=== PATIENT | female | born 1935 | race Caucasian/White ===

== ENCOUNTER 2017-11-28 17:31 | Emergency (ER) | payer MEDICARE ==
[2015-03-09 09:01] VITALS: BMI 28.1
[~2017-11-28 17:31] MED LIST: ACETAMINOPHEN500 M1 PO; CARDIZEM CD240 MG PO; COUMADIN3 MG PO; DIOVAN HCT 160/1 TAB PO; LOPRESSOR25 MG PO; PLAVIX75 MG PO; VALIUM5 MG PO
[2017-11-28 18:17] LABS: APPEARANCE CLEAR (CLEAR); BILIRUBIN NEGATIVE (NEGATIVE); COLOR YELLOW (YELLOW); GLUCOSE NEGATIVE (NEGATIVE); KETONE SMALL mg/dL (NEGATIVE); NITRITE NEGATIVE (NEGATIVE); PROTEIN 1+ mg/dL (NEGATIVE); UROBILINOGEN NORMAL (NORMAL)
[2017-11-28 18:19] LABS: BACTERIA MODERATE /hpf (NONE SEEN); GRANULAR CAST OCC /lpf (NONE SEEN); MUCUS <1+ /lpf (NONE SEEN); RED CELLS - URINE 0-5 /hpf (0-5)
[2017-11-28 19:11] LABS: BASOPHILS 0 % (0-2); EOSINOPHILS 0.2 % (0-7); HEMATOCRIT 38.4 % (36.0-48.0); HEMOGLOBIN 12.7 g/dL (12-16); IMMATURE GRANULOCYTES 0.1 % (0-5); LYMPHOCYTES 2.2 % (15-50); MCHC 33.1 g/dL (31.0-37.0); MCV 90.6 fL (80.0-100.0); MEAN PLATELET VOLUME 10.3 fL (7.4-10.4); MONOCYTES 2.7 % (2-11); NEUTROPHILS 94.8 % (40-80); PLATELET COUNT 216 10x3/uL (130-400); RBC 4.24 10x6/uL (4.00-5.40); RDW 13.4 % (11.5-14.5)
[2017-11-28 19:20] LABS: ALBUMIN 3.8 g/dL (3.4-5.0); ALKALINE PHOSPHATASE 87 U/L (46-116); ALT (SGPT) 20 U/L (10-68); BILIRUBIN - TOTAL 0.44 mg/dL (0.2-1.3); CALC OSMOLALITY 288 mosm/kg (275-300); CALCIUM 8.8 mg/dL (8.5-10.1); CARBON DIOXIDE 24.1 mmol/L (21.0-32.0); CHLORIDE - SERUM 106 mmol/L (98-107); CREATININE - SERUM 1.2 mg/dL (0.6-1.3); GLUCOSE 128 mg/dL (74-106); POTASSIUM - SERUM 4.1 mmol/L (3.5-5.1); PROTEIN - SERUM 6.9 g/dL (6.4-8.2); SODIUM 141 mmol/L (136-145); UREA NITROGEN 29 mg/dL (7-18); eGFR NON AFRICAN AMERICAN 45 mL/min (90-120)
[2017-11-28 19:27] LABS: TROPONIN-I < 0.017 ng/mL (0.000-0.060)
== END 2017-11-28 20:18 | disposition home or self-care (01) ==
LOC: D.ER 17:31
PROVIDERS: Emergency Medicine
DX: A08.4 Viral intestinal infection, unspecified (principal); E86.0 Dehydration; N39.0 Urinary tract infection, site not specified; N76.0 Acute vaginitis

== ENCOUNTER 2019-08-05 12:08 | Emergency (ER) | payer MEDICARE ==
[~2019-08-05] VITALS: Ht 165.1 cm; Wt 76.8 kg
[2019-08-05 12:23] VITALS: Ht 165.1 cm; Wt 76.8 kg
[2019-08-05] MEDS ORDERED: TOPROL XL100 MG PO (12:27)
[2019-08-05] MEDS ORDERED: COZAAR100 MG PO (12:27)
[2019-08-05] MEDS ORDERED: BAYER CHEWABLE81 MG PO (12:27)
[2019-08-05] MEDS ORDERED: CLEOCIN HCL300 MG PO (12:28)
[2019-08-05] MEDS ORDERED: CARDIZEM 90 MG90 MG PO (12:28)
[2019-08-05] MEDS ORDERED: LASIX20 MG PO (12:29)
[2019-08-05] MEDS ORDERED: CATAPRES0.1 MG PO (12:31)
[2019-08-05] MEDS ORDERED: REMERON15 MG PO (12:31)
[2019-08-05] MEDS ORDERED: LIPITOR20 MG PO (12:31)
[2019-08-05 13:00] LABS: BASOPHILS 0.6 % (0-2); EOSINOPHILS 8.4 % (0-7); HEMOGLOBIN 11.9 g/dL (12-16); IMMATURE GRANULOCYTES 0.2 % (0-5); LYMPHOCYTES 21.8 % (15-50); MCH 29.9 pg (26.0-34.0); MCHC 33.1 g/dL (31.0-37.0); MCV 90.5 fL (80.0-100.0); MEAN PLATELET VOLUME 9.6 fL (7.4-10.4); MONOCYTES 8.2 % (2-11); NEUTROPHILS 60.8 % (40-80); PLATELET COUNT 242 10x3/uL (130-400); RBC 3.98 10x6/uL (4.00-5.40); RDW 14.2 % (11.5-14.5); WBC 4.8 10x3/uL (4.8-10.8)
[2019-08-05 13:01] LABS: APPEARANCE CLEAR (CLEAR); COLOR STRAW (YELLOW); GLUCOSE NEGATIVE (NEGATIVE); NITRITE NEGATIVE (NEGATIVE); PROTEIN NEGATIVE (NEGATIVE)
[2019-08-05 13:02] LABS: BILIRUBIN NEGATIVE (NEGATIVE); KETONE NEGATIVE (NEGATIVE); UROBILINOGEN NORMAL (NORMAL)
[2019-08-05 13:06] LABS: ANION GAP 11.5 mmol/L (8-16); CALCIUM 8.8 mg/dL (8.5-10.1); CARBON DIOXIDE 27.8 mmol/L (21.0-32.0); CREATININE - SERUM 1.3 mg/dL (0.6-1.3); POTASSIUM - SERUM 4.3 mmol/L (3.5-5.1)
[2019-08-05 13:12] LABS: ALBUMIN 3.7 g/dL (3.4-5.0); BILIRUBIN - TOTAL 0.46 mg/dL (0.2-1.3); PROTEIN - SERUM 6.9 g/dL (6.4-8.2)
[2019-08-05 14:34] LABS: CREATINE KINASE 77 UL (21-215); TROPONIN-I < 0.017 ng/mL (0.000-0.060)
[2019-08-05 17:12] VITALS: BP 178/59
--- NOTE | 2019-08-16 11:40 | CN ---
PATIENT NAME:EMILIA CALDERÓN MEDICAL RECORD: [id number] : 33 LOCATION:.ER ADMIT DATE: ACCOUNT: [id number] CONSULTING PHYSICIAN: VERO CAMPOVERDE MD REFERRING PHYSICIAN: ALY ANGLIN MD DATE OF CONSULTATION: 08/05/2019 CARDIOLOGY CONSULTATION DIAGNOSES: 1. Uncontrolled hypertension. 2. Angina. 3. Coronary artery disease. 4. Previous percutaneous transluminal coronary angioplasty stent. 5. Essential hypertension. 6. Hyperlipidemia. HISTORY OF PRESENT ILLNESS: Mrs. Calderón was previously a patient here. She relocated to the [facility]. She is now relocating back. Since she has been in [place], she underwent PTCA stent of her left circumflex and RCA in September with VersionOne drug-eluting stents. She had done well until recently. Her blood pressure has not gone under 200 in weeks. She is on Cardizem, Cozaar, Toprol, Catapres, Lasix. She continues to have hypertensive episodes on a daily basis with systolic blood pressures over 200. She as well now has developed some chest pain. Her EKG is with no changes. Troponin is normal. FAMILY HISTORY: Positive for premature coronary artery disease as well as hypertension. SOCIAL HISTORY: As above. She is relocating to the [facility]. She denies smoking or ETOH. PHYSICAL EXAMINATION: CONSTITUTIONAL/GENERAL APPEARANCE: Well nourished, well developed, appears stated age. EYES: Lids and conjunctivae noninjected. No discharge. No pallor. ENT: Lips within normal limit. No cyanosis. No pallor. NECK: Carotid arteries, bilateral normal upstroke. No bruits. No thrills. No jugular venous pressure or distention. CERVICAL LYMPH NODES: Nontender. Nonenlarged. THYROID: Not enlarged. No nodules. CARDIOVASCULAR: Precordial exam, nondisplaced. No heaves or pericardial thrills. Rate and rhythm, regular. Heart sounds, normal S1, normal S2. No S3, no gallop, no rub. Systolic murmur, not heard. Diastolic murmur, not heard. RESPIRATORY: Respiratory effort, unlabored. Normal curvature. No thoracic deformity. No chest wall tenderness. Percussion, resonant. Auscultation, clear. No wheezes, no rales, no rhonchi. ABDOMEN: Soft, nondistended, nontender. No abdominal pain, no vomiting and normal appetite. MUSCULOSKELETAL: No joint tenderness, normal gait, normal tone. SKIN: Warm and dry. REVIEW OF SYSTEMS: The patient reports easy bruising but reports no swollen glands. The patient reports no fever, no night sweats, no significant weight CONSULT REPORT [id number] EMILIA CALDERÓN N gain, no significant weight loss. No significant exercise tolerance. The patient reports no dry eyes, no irritation, no vision change. Patient reports no difficulty hearing and no ear pain. Patient reports no frequent nose bleeds or nose and sinus problems. Patient reports on arm pain on exertion. No shortness of breath while lying down. No history of heart murmur. Patient reports no cough, no wheezing or coughing up blood. Patient reports no abdominal pain, no vomiting. Normal appetite. No diarrhea and not vomiting blood. No nausea and no constipation. Patient reports no incontinence. No difficulty urinating. No hematuria. No increased frequency. Patient reports no muscle aches. No weakness, no arthralgias, no back pain. No swelling of the extremities. Patient reports no abnormal mole, no jaundice, no rashes. Reports no loss of consciousness. No weakness and no numbness. No seizures, dizziness, or headaches. The patient reports no depression, no sleep disturbance, feeling safe in a relationship and no alcohol abuse. Patient reports on fatigue. Reports no runny nose or sinus pressure. No itching, no hives, and no frequent sneezing. OVERALL IMPRESSION: Out of control hypertension. At this time, we will discontinue the Cardizem, place her on Procardia-XL [address]. We will also add Cardura 8 mg b.i.d. Continuing the Cozaar, continuing the Toprol, continue the Catapres. We will see her in the office. She will bring in blood pressure readings. We will see if this makes a difference. TRANSINT:[id number] Voice Confirmation ID: [id number] DOCUMENT ID: [id number] VERO CAMPOVERDE MD at 1140 CC: [id number] DICTATION DATE: 08/05/19 1453 SVP DIGITAL SALES: 08/05/19 0408 DEP ER 08/05/19 [facility] [address] [place] [address]
== END 2019-08-05 17:12 | disposition home or self-care (01) ==
LOC: D.ER 12:08
PROVIDERS: Family Medicine
DX: I10 Essential (primary) hypertension (principal); I25.10 Atherosclerotic heart disease of native coronary artery without angina pectoris

== ENCOUNTER 2019-10-14 13:42 | Inpatient (IN) | payer MEDICARE ==
[~2019-10-14] VITALS: Ht 165.1 cm; Wt 74.8 kg
[~2019-10-14 13:42] MED LIST changes: +BAYER CHEWABLE81 MG PO; +CARDIZEM 90 MG90 MG PO; +CATAPRES0.1 MG PO; +CLEOCIN HCL300 MG PO; +COZAAR100 MG PO; +LASIX20 MG PO; +LIPITOR20 MG PO; +REMERON15 MG PO; +TOPROL XL100 MG PO
[2019-10-14 14:38] LABS: BASOPHILS 0.1 % (0-2); EOSINOPHILS 0.1 % (0-7); HEMATOCRIT 32.1 % (36.0-48.0); HEMOGLOBIN 10.6 g/dL (12-16); IMMATURE GRANULOCYTES 0.4 % (0-5); LYMPHOCYTES 5.4 % (15-50); MCV 90.9 fL (80.0-100.0); MEAN PLATELET VOLUME 10.5 fL (7.4-10.4); MONOCYTES 9.2 % (2-11); NEUTROPHILS 84.8 % (40-80); RBC 3.53 10x6/uL (4.00-5.40); RDW 12.3 % (11.5-14.5); WBC 7.1 10x3/uL (4.8-10.8)
[2019-10-14 14:50] LABS: PLATELET COUNT 162 10x3/uL (130-400)
[2019-10-14 14:59] LABS: CALC OSMOLALITY 275 mosm/kg (275-300); CALCIUM 8.2 mg/dL (8.5-10.1); CARBON DIOXIDE 25.3 mmol/L (21.0-32.0); CHLORIDE - SERUM 102 mmol/L (98-107); CREATININE - SERUM 1.8 mg/dL (0.6-1.3); GLUCOSE 103 mg/dL (74-106); POTASSIUM - SERUM 3.5 mmol/L (3.5-5.1); SODIUM 136 mmol/L (136-145); UREA NITROGEN 25 mg/dL (7-18); eGFR NON AFRICAN AMERICAN 28 mL/min (90-120)
[2019-10-14 15:10] LABS: ALBUMIN 2.7 g/dL (3.4-5.0); ALKALINE PHOSPHATASE 75 U/L (46-116); ALT (SGPT) 39 U/L (10-68); AMYLASE - SERUM 39 U/L (25-115); BILIRUBIN - TOTAL 0.41 mg/dL (0.2-1.3); LIPASE 59 U/L (73-393); PROTEIN - SERUM 5.9 g/dL (6.4-8.2)
[2019-10-14 15:19] LABS: TROPONIN-I < 0.017 ng/mL (0.000-0.060)
[2019-10-14 15:32] LABS: APPEARANCE HAZY (CLEAR); BILIRUBIN NEGATIVE (NEGATIVE); COLOR YELLOW (YELLOW); GLUCOSE NEGATIVE (NEGATIVE); KETONE NEGATIVE (NEGATIVE); NITRITE NEGATIVE (NEGATIVE); PROTEIN 1+ mg/dL (NEGATIVE); SPECIFIC GRAVITY 1.025 (1.005-1.020); UROBILINOGEN NORMAL (NORMAL)
[2019-10-14 15:33] LABS: BACTERIA MANY /hpf (NEGATIVE); EPITHELIAL CELLS 0-5 /hpf (0-5); RED CELLS - URINE 0-5 /hpf (0-5); WHITE CELLS - URINE 25-50 /hpf (NEGATIVE)
--- NOTE | 2019-10-14 17:18 | NUR ---
AFTER MEDS SCANNED, UNABLE TO FLUSH IV IN THE RIGHT WRIST, RESITED TO RIGHT FOREARM, AND MEDICATIONS ARE INFUSING AT THIS NEW IV SITE.
--- NOTE | 2019-10-14 17:45 | MORECARE ---
CASE MANAGEMENT DISCHARGE SUMMARY PATIENT: EMILIA CALDERÓN UNIT: [id number] ADM DATE: 10/14/19 AGE: 84 : 34 SEX: F ROOM/BED: D.2239 AUTHOR: GER HUIZAR PHYSICIAN: REFERRING PHYSICIAN: IMELDA ROMANO MD DATE OF SERVICE: 10/14/19 Discharge Plan Patient Name: EMILIA CALDERÓN Facility: [facility]:[place] : 1935 Planned Disposition: Anticipated Discharge Date: Discharge Date: Expected LOS: Initial Reviewer: [email or web address] Initial Review Date: 10/14/2019 Generated: 10/14/19 6:44 pm DCP- Discharge Planning Updated by [email or web address]: Candace Montero on 10/14/19 4:[address] CM met with patient to discuss initial discharge planning. Patient is in agreement to proceed with assessment. Patient is alert/oriented. Stairs/steps: 0. PCP: Patient does not have a PCP. Dr. Bhatia is her sports medicine trainer. Pharmacy: [facility]. Patient states they have been able to obtain all of their prescribed medications. Patient lives alone. HHS: No. DME: None. Patient gives permission to speak with family members. Emergency contact: Mena or RACHELLE Sky (Twin sister) [phone]. Patient is Independent with ADL's, medication management. CM discussed the availability of HH, Rehab, DME services. Patient denies the need for additional services at this time and feels safe returning to previous environment. Patient denies being hospitalized within the past 30 days. 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 Transportation at time of discharge: Mena or RACHELLE Sky. CM will follow and assist with DC needs/plans PRN. Patient Name: EMILIA CALDERÓN Page [id number] at 0252 All edits/amendments must be made on the electronic document DICTATION DATE: 10/14/191743 TRAFFIC OFFICER: NA 10/14/191743 RPT#: [id number] DC DATE: STATUS: ADM IN [facility] [address] [place] [address] END OF REPORT
--- NOTE | 2019-10-14 17:54 | MORECARE ---
CASE MANAGEMENT DISCHARGE SUMMARY PATIENT: EMILIA CALDERÓN UNIT: [id number] ADM DATE: 10/14/19 AGE: 84 : 34 SEX: F ROOM/BED: D.2239 AUTHOR: BHUPENDRADOC PHYSICIAN: REFERRING PHYSICIAN: IMELDA ROMANO MD DATE OF SERVICE: 10/14/19 Discharge Plan Patient Name: EMILIA CALDERÓN Facility: [facility]:[place] : 1935 Planned Disposition: Anticipated Discharge Date: Discharge Date: Expected LOS: Initial Reviewer: [email or web address] Initial Review Date: 10/14/2019 Generated: 10/14/19 6:53 pm DCP- Discharge Planning Updated by [email or web address]: Candace Montero on 10/14/19 4:[address] CM met with patient to discuss initial discharge planning. Patient is in agreement to proceed with assessment. Patient is alert/oriented. Stairs/steps: 0. PCP: Patient does not have a PCP. Dr. Bhatia is her flap lining binder. [facility] Patient states they have been able to obtain all of their prescribed medications. Patient lives alone. HHS: No. DME: None. Patient gives permission to speak with family members. Emergency contact: Mena dominguez RACHELLE Asya (Twin sister) [phone]. Patient is Independent with ADL's, medication management. CM discussed the availability of HH, Rehab, DME services. Patient denies the need for additional services at this time and feels safe returning to previous environment. Patient denies being hospitalized within the past 30 days. Patient denies the use of community resources FLIGHT STEWARD. Transportation at time of discharge: Mena Sky. CM will follow and assist with DC needs/plans PRN. DCPIA - Discharge Planning Initial Assessment Updated by [email or web address]: Candace Montero on 10/14/19 5:45 pm * Is the patient Alert and Oriented? Yes * How many steps to enter\exit or inside your home? * PCP No PCP currently. Dr. Bhatia Cardiology * Pharmacy [facility] 7 * Preadmission Environment Home Alone * ADLs Independent * Other Equipment * List name and contact numbers for known caregivers / representatives who currently or will assist patient after discharge: Perla Sky (twin sister) [phone] * Verbal permission to speak to the caregivers and representatives has been obtained from the patient. Yes * Community resources currently utilized None * Additional services required to return to the preadmission environment? No * Can the patient safely return to the preadmission environment? Yes * Has this patient been hospitalized within the prior 30 days at any hospital? No Last DP export: 10/14/19 4:45 Patient Name: EMILIA CALDERÓN Page [phone] at 1754 All edits/amendments must be made on the electronic document DICTATION DATE: 10/14/191752 WOOD LATHER: NA 10/14/191752 RPT#: [id number] CA DATE: STATUS: ADM IN [facility] [address] [place] [address] END OF REPORT
--- NOTE | 2019-10-14 17:57 | NUR ---
PT TO ROOM FROM ER VIA WHEELCHAIR. IV NORMAL SALINE INFUSING ON ARRIVAL. SOME NAUSEA COMPLAINT BUT LITTLE BETTER THAN PRIOR TO ARRIVAL. NO FAMILY PRESENT.
[2019-10-14] MEDS ORDERED: CARDURA8 MG PO (18:04)
--- NOTE | 2019-10-14 20:00 | NUR ---
PT RESTING QUIETLY, EYES CLOSED. NO NAUSEA/DIARRHEA AT THIS TIME. TELEMETRY SINUS RHYTHM. ASSESSMENT COMPLETE PER FLOW-SHEET. HISTORY REVIEWED. WILL CONTINUE TO MONITOR.
[2019-10-14 21:00] VITALS: BP 133/48
[2019-10-14 23:28] LABS: CKMB 0.6 U/L (0.0-3.6); CREATINE KINASE 45 UL (21-215); TROPONIN-I < 0.017 ng/mL (0.000-0.060)
[2019-10-15 01:17] VITALS: BP 154/48
[2019-10-15 01:24] VITALS: BP 133/48; BMI 27.5
[2019-10-15 04:50] VITALS: BP 146/49
[2019-10-15 06:32] LABS: % SATURATION 7 % (15-55); IRON 12 ug/dl (35-150); TOTAL IRON BIND CAPACITY 164 ug/dl (260-445); UNSAT IRON BIND CAPACITY 152 ug/dl (150-375)
[2019-10-15 07:05] LABS: INR 1.15 (0.85-1.17); PROTIME 14.2 SECONDS (11.6-15.0)
[2019-10-15 07:06] LABS: APTT 34.9 SECONDS (22.8-39.4); CKMB 0.4 U/L (0.0-3.6); CREATINE KINASE 41 UL (21-215)
[2019-10-15 07:07] LABS: TROPONIN-I < 0.017 ng/mL (0.000-0.060)
--- NOTE | 2019-10-15 08:35 | NUR ---
RESTING IN BED, NO DISTRESS NOTED, SL IN PLACE, TELE WITH SR AT 70
[2019-10-15 09:01] VITALS: BP 152/51
[2019-10-15 10:52] LABS: BASOPHILS 0.1 % (0-2); EOSINOPHILS 0.4 % (0-7); HEMATOCRIT 28.3 % (36.0-48.0); HEMOGLOBIN 9.4 g/dL (12-16); IMMATURE GRANULOCYTES 0.4 % (0-5); LYMPHOCYTES 10.5 % (15-50); MCH 30.4 pg (26.0-34.0); MCHC 33.2 g/dL (31.0-37.0); MCV 91.6 fL (80.0-100.0); NEUTROPHILS 78.6 % (40-80); PLATELET COUNT 160 10x3/uL (130-400); RBC 3.09 10x6/uL (4.00-5.40); RDW 12.5 % (11.5-14.5); WBC 6.8 10x3/uL (4.8-10.8)
[2019-10-15 11:14] LABS: ALBUMIN 2.1 g/dL (3.4-5.0); ALKALINE PHOSPHATASE 70 U/L (46-116); ALT (SGPT) 45 U/L (10-68); BILIRUBIN - TOTAL 0.27 mg/dL (0.2-1.3); CARBON DIOXIDE 21.5 mmol/L (21.0-32.0); CHLORIDE - SERUM 103 mmol/L (98-107); CKMB 0.3 U/L (0.0-3.6); CREATINE KINASE 31 UL (21-215); GLUCOSE 103 mg/dL (74-106); POTASSIUM - SERUM 3.3 mmol/L (3.5-5.1); PROTEIN - SERUM 5.4 g/dL (6.4-8.2); SODIUM 135 mmol/L (136-145)
[2019-10-15 11:15] LABS: CALC OSMOLALITY 277 mosm/kg (275-300); CREATININE - SERUM 3.6 mg/dL (0.6-1.3); UREA NITROGEN 35 mg/dL (7-18)
[2019-10-15 11:16] LABS: TROPONIN-I < 0.017 ng/mL (0.000-0.060); eGFR NON AFRICAN AMERICAN 13 mL/min (90-120)
[2019-10-15 12:51] VITALS: BP 125/49
[2019-10-15 17:01] VITALS: BP 122/54
[2019-10-16 00:29] VITALS: BP 173/54
[2019-10-16 05:30] VITALS: BP 180/62
[2019-10-16 06:27] LABS: BASOPHILS 0.2 % (0-2); EOSINOPHILS 2.1 % (0-7); HEMOGLOBIN 9.5 g/dL (12-16); IMMATURE GRANULOCYTES 0.7 % (0-5); LYMPHOCYTES 11.1 % (15-50); MCH 29.8 pg (26.0-34.0); MCHC 32.8 g/dL (31.0-37.0); MCV 90.9 fL (80.0-100.0); MEAN PLATELET VOLUME 10.2 fL (7.4-10.4); MONOCYTES 11.7 % (2-11); NEUTROPHILS 74.2 % (40-80); RBC 3.19 10x6/uL (4.00-5.40); RDW 12.5 % (11.5-14.5); WBC 5.8 10x3/uL (4.8-10.8)
[2019-10-16 06:37] LABS: ANION GAP 16.6 mmol/L (8-16); CALCIUM 7.9 mg/dL (8.5-10.1); CARBON DIOXIDE 19.6 mmol/L (21.0-32.0); CREATININE - SERUM 4.8 mg/dL (0.6-1.3); MAGNESIUM - SERUM 2.2 mg/dL (1.8-2.4); PHOSPHOROUS 3.3 mg/dL (2.5-4.9); POTASSIUM - SERUM 4.2 mmol/L (3.5-5.1)
[2019-10-16 06:38] LABS: PLATELET COUNT 204 10x3/uL (130-400)
--- NOTE | 2019-10-16 10:17 | NUR ---
PT LYING IN BED NO S/SX OF DISTRESS, NO NEEDS VOICED, BED IN LOWEST POSITION, CL IN REACH CONTINUE WITH PLANOF CARE
[2019-10-16 12:20] VITALS: BP 112/58
--- NOTE | 2019-10-16 13:18 | NUR ---
I have reviewed this patient and I concur with the Shift Assessment completed by the Licensed Practical Nurse today this shift.
--- NOTE | 2019-10-16 13:34 | NUR ---
SPOKE TO NURSE YESTERDAY IN REGARDS TO PT BLADDER SCAN THAT WAS ORDERED, STATED PT IS VOIDING AND NO NEEDS FOR BLADDER SCAN SPOKE TO PT AND SHE STATED SHE IS VOIDING AND FEELS LIKE SHE IS EMPTYING COMPLETELY WILL SPEAK TO NICKEL OPERATOR IN REGARDS TO ORDER. PLACED HAT IN TOILET FOR STOOL SAMPLE. CONTINUE WITH PLAN OF CARE
[2019-10-16 13:35] LABS: % SATURATION 13 % (15-55); IRON 17 ug/dl (35-150); TOTAL IRON BIND CAPACITY 130 ug/dl (260-445); UNSAT IRON BIND CAPACITY 113 ug/dl (150-375)
[2019-10-16 16:12] VITALS: BP 117/59
--- NOTE | 2019-10-16 17:43 | NUR ---
PT C/O SWELLING AND NUMBNESS IN FEET THAT SHE STATES STARTED LAST NIGHT. SAYS IT IS MORE IN HER RIGHT LEG THAN HER LEFT AND WORSE WHEN SHE SITS UP. ENCOURAGED PT TO LAY BACK AND ELEVATE FEET. PT AGREEABLE. CONTINUE WITH PLAN OF CARE AND MONITOR SWELLING
[2019-10-16 19:30] VITALS: BP 179/64
[2019-10-17 00:30] VITALS: BP 174/54
[2019-10-17 05:31] VITALS: BP 172/63
[2019-10-17 06:53] LABS: BASOPHILS 0.2 % (0-2); EOSINOPHILS 2.9 % (0-7); HEMATOCRIT 28.4 % (36.0-48.0); HEMOGLOBIN 9.4 g/dL (12-16); IMMATURE GRANULOCYTES 0.6 % (0-5); MCH 29.8 pg (26.0-34.0); MCHC 33.1 g/dL (31.0-37.0); MCV 90.2 fL (80.0-100.0); MEAN PLATELET VOLUME 9.9 fL (7.4-10.4); MONOCYTES 12.8 % (2-11); NEUTROPHILS 73.5 % (40-80); PLATELET COUNT 241 10x3/uL (130-400); RBC 3.15 10x6/uL (4.00-5.40); RDW 12.5 % (11.5-14.5); WBC 5.1 10x3/uL (4.8-10.8)
[2019-10-17 07:14] LABS: ANION GAP 17.2 mmol/L (8-16); CALCIUM 8.1 mg/dL (8.5-10.1); CARBON DIOXIDE 19.9 mmol/L (21.0-32.0); CREATININE - SERUM 4.5 mg/dL (0.6-1.3); MAGNESIUM - SERUM 1.9 mg/dL (1.8-2.4); PHOSPHOROUS 3.6 mg/dL (2.5-4.9); POTASSIUM - SERUM 4.1 mmol/L (3.5-5.1)
[2019-10-17 08:14] VITALS: BP 163/53
[2019-10-17 12:51] VITALS: BP 175/64
[2019-10-17 14:40] VITALS: BMI 27.4
[2019-10-17 16:35] VITALS: BP 167/67
[2019-10-17 19:30] VITALS: BP 159/64
[2019-10-17 22:09] VITALS: Ht 165.1 cm; Wt 74.8 kg
[2019-10-18 00:30] VITALS: BP 160/60
--- NOTE | 2019-10-18 01:03 | NUR ---
REC'D IN BED DURING WALKING ROUNDS, CHGE OF SHIFT.LYING ON RIGHT SIDE.ALERT/ORIENTED X3.DENIES PAIN OR ANY OTHER DISCOMFORT AT PRESENT TIME. WILL CONTINUE TO MONITOR FOR ANY CHGES AND FOLLOW CURRENT PLAN OF CARE.
[2019-10-18 05:33] LABS: BASOPHILS 0.4 % (0-2); EOSINOPHILS 2.2 % (0-7); HEMATOCRIT 28.8 % (36.0-48.0); HEMOGLOBIN 9.5 g/dL (12-16); IMMATURE GRANULOCYTES 1.3 % (0-5); LYMPHOCYTES 15.6 % (15-50); MCH 29.7 pg (26.0-34.0); MEAN PLATELET VOLUME 9.6 fL (7.4-10.4); MONOCYTES 11.4 % (2-11); NEUTROPHILS 69.1 % (40-80); PLATELET COUNT 283 10x3/uL (130-400); RDW 12.6 % (11.5-14.5); WBC 5.5 10x3/uL (4.8-10.8)
[2019-10-18 05:35] VITALS: BP 154/67
[2019-10-18 05:36] LABS: ANION GAP 15.9 mmol/L (8-16); CALCIUM 8.2 mg/dL (8.5-10.1); CARBON DIOXIDE 21.7 mmol/L (21.0-32.0); CREATININE - SERUM 3.4 mg/dL (0.6-1.3); MAGNESIUM - SERUM 1.7 mg/dL (1.8-2.4); PHOSPHOROUS 4.1 mg/dL (2.5-4.9); POTASSIUM - SERUM 3.6 mmol/L (3.5-5.1)
--- NOTE | 2019-10-18 07:18 | NUR ---
I have reviewed this patient and I concur with the Shift Assessment completed by the Licensed Practical Nurse today this shift.
[2019-10-18 08:43] VITALS: BP 169/53
[2019-10-18] MEDS ORDERED: LEVOFLOXACIN500 MG PO (11:29)
--- NOTE | 2019-10-18 12:01 | MORECARE ---
CASE MANAGEMENT DISCHARGE SUMMARY PATIENT: EMILIA CALDERÓN UNIT: [id number] ADM DATE: 10/14/19 AGE: 84 : 34 SEX: F ROOM/BED: D.2239 AUTHOR: BHUPENDRADOC PHYSICIAN: REFERRING PHYSICIAN: IMELDA ROMANO MD DATE OF SERVICE: 10/18/19 Discharge Plan Patient Name: EMILIA CALDERÓN Facility: [facility]:[place] : 1935 Planned Disposition: Anticipated Discharge Date: Discharge Date: Expected LOS: Initial Reviewer: [email or web address] Initial Review Date: 10/14/2019 Generated: 10/18/19 1:01 pm Comments DCP- Discharge Planning Updated by [email or web address]: Nya Verma on 10/18/19 10:[address] PATIENT DISCHARING HOME TODAY, DENIES ANY NEEDS AT THIS TIME. IMM SERVED AND EXPLAINED. COPY PLACED IN CHART SISTER WILL BE DRIVING HER HOME DCP- Discharge Planning Updated by [email or web address]: Candace Montero on 10/14/19 4:[address] CM met with patient to discuss initial discharge planning. Patient is in agreement to proceed with assessment. Patient is alert/oriented. Stairs/steps: 0. PCP: Patient does not have a PCP. Dr. Bhatia is her gravity prospecting observer helper. [facility]. Patient states they have been able to obtain all of their prescribed medications. Patient lives alone. HHS: No. DME: None. Patient gives permission to speak with family members. Emergency contact: Mena or RACHELLE Sky (Twin sister) [phone]. Patient is Independent with ADL's, medication management. CM discussed the availability of HH, Rehab, DME services. Patient denies the need for additional services at this time and feels safe returning to previous environment. Patient denies being hospitalized within the past 30 days. 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 Transportation at time of discharge: Mena Sky. CM will follow and assist with DC needs/plans PRN. DCPIA - Discharge Planning Initial Assessment Updated by [email or web address]: Candace Montero on 10/14/19 5:45 pm * Is the patient Alert and Oriented? Yes * How many steps to enter\exit or inside your home? * PCP No PCP currently. Dr. Bhatia Cardiology * Pharmacy [facility] * Preadmission Environment Home Alone * ADLs Independent * Other Equipment * List name and contact numbers for known caregivers / representatives who currently or will assist patient after discharge: Perla Sky (twin sister) [phone] * Verbal permission to speak to the caregivers and representatives has been obtained from the patient. Yes * Community resources currently utilized None * Additional services required to return to the preadmission environment? No * Can the patient safely return to the preadmission environment? Yes * Has this patient been hospitalized within the prior 30 days at any hospital? No Coverage Notice Reviewer: [id number] Lilly Verma Notice Issued Date-Time: 10/18/2019 11:50 Notice Type: IM Discharge Notice Notice Delivered To: Patient Relationship to Patient: Textile Machinery Instructor Name: Delivery Method: HAND - Hand Delivered Lisbeth Days: Prior Verbal Notification: Recipient Understood Notice: Yes Recipient Signature: Yes Med Rec Note Co-signed by Attending: Coverage Notice Comment: Last DP export: 10/14/19 4:54 Patient Name: EMILIA CALDERÓN Page [phone] at 1201 All edits/amendments must be made on the electronic document DICTATION DATE: 10/18/19 120 SERVICE GREETER: NA 10/18/19 1201 RPT#: [id number] DC DATE: STATUS: ADM IN [facility] [address] [place] [address] END OF REPORT
--- NOTE | 2019-10-18 12:40 | NUR ---
ALL DISCHARGE INSTRUCTIONS COVERED WITH PT. PT DENIES FURTHER QUESTIONS/CONCERNS/NEEDS AT THIS TIME. PIV REMOVED FROM LEFT FA WITH CATHETER TIP INTACT. DRESSING APPLIED. ALL DISCHARGE PAPERS SIGNED. SIGNED DC PAPERS PLACED IN PT CHART. PT TO NOTIFY NURSE WHEN READY FOR TRANSPORT OUT OF ROOM. BED IS IN THE LOWEST POSITION. CALL LIGHT AND BEDSIDE TABLE ARE WITHIN REACH. SIDE RAILS X 2. WILL CONT TO MONITOR.
[2019-10-18 12:43] VITALS: BP 143/51
--- NOTE | 2019-10-18 15:46 | NUR ---
PT TRANSPORTED FROM ROOM VIA WHEELCHAIR FOR TRANSPORT HOME. PT AND PT FAMILY MEMBER DENY ANY FURTHER QUESTIONS/CONCERNS/NEEDS AT THIS TIME. PT THANKED THIS NURSE FOR CARE THIS SHIFT.
--- NOTE | 2019-10-22 09:42 | MORECARE ---
CASE MANAGEMENT DISCHARGE SUMMARY PATIENT: EMILIA CALDERÓN UNIT: [id number] ADM DATE: 10/14/19 AGE: 84 : 34 SEX: F ROOM/BED: D.2239 AUTHOR: BHUPENDRADOC PHYSICIAN: REFERRING PHYSICIAN: IMELDA ROMANO MD DATE OF SERVICE: 10/22/19 Discharge Plan Patient Name: EMILIA CALDERÓN Facility: [facility]:[place] : 1935 Planned Disposition: Anticipated Discharge Date: Discharge Date: 10/18/2019 Expected LOS: Initial Reviewer: [email or web address] Initial Review Date: 10/14/2019 Generated: 10/22/19 10:41 am Comments DCP- Discharge Planning Updated by [email or web address]: Nya Verma on 10/18/19 10:[address] PATIENT DISCHARING HOME TODAY, DENIES ANY NEEDS AT THIS TIME. IMM SERVED AND EXPLAINED. COPY PLACED IN CHART SISTER WILL BE DRIVING HER HOME DCP- Discharge Planning Updated by [email or web address]: Candace Montero on 10/14/19 4:[address] CM met with patient to discuss initial discharge planning. Patient is in agreement to proceed with assessment. Patient is alert/oriented. Stairs/steps: 0. PCP: Patient does not have a PCP. Dr. Bhatia is her cyber systems operations specialist. [facility]. Patient states they have been able to obtain all of their prescribed medications. Patient lives alone. HHS: No. DME: None. Patient gives permission to speak with family members. Emergency contact: Mena or RACHELLE Sky (Twin sister) [phone]. Patient is Independent with ADL's, medication management. CM discussed the availability of HH, Rehab, DME services. Patient denies the need for additional services at this time and feels safe returning to previous environment. Patient denies being hospitalized within the past 30 days. Patient denies the use of community resources [place]. Transportation at time of discharge: Mena Sky. CM will follow and assist with DC needs/plans PRN. DCPIA - Discharge Planning Initial Assessment Updated by [email or web address]: Candace Montero on 10/14/19 5:45 pm * Is the patient Alert and Oriented? Yes * How many steps to enter\exit or inside your home? * PCP No PCP currently. Dr. Bhatia Cardiology * [facility] * Preadmission Environment Home Alone * ADLs Independent * Other Equipment * List name and contact numbers for known caregivers / representatives who currently or will assist patient after discharge: Perla Sky (twin sister) [phone] * Verbal permission to speak to the caregivers and representatives has been obtained from the patient. Yes * Community resources currently utilized None * Additional services required to return to the preadmission environment? No * Can the patient safely return to the preadmission environment? Yes * Has this patient been hospitalized within the prior 30 days at any hospital? No Coverage Notice Reviewer: [id number] Lilly Verma Notice Issued Date-Time: 10/18/2019 11:50 Notice Type: IM Discharge Notice Notice Delivered To: Patient Relationship to Patient: Field Service Engineer Name: Delivery Method: HAND - Hand Delivered Lisbeth Days: Prior Verbal Notification: Recipient Understood Notice: Yes Recipient Signature: Yes Med Rec Note Co-signed by Attending: Coverage Notice Comment: Last DP export: 10/18/19 11:01 Patient Name: EMILIA CALDERÓN Page [phone] at 0942 All edits/amendments must be made on the electronic document DICTATION DATE: 10/22/19940 HEALTH INFORMATION ADMINISTRATOR: NA 10/22/19940 RPT#: [id number] DC DATE:10/18/19 STATUS: DIS IN [facility] [address] [place] [address] END OF REPORT
== END 2019-10-18 15:47 | disposition home or self-care (01) | DRG 683 ==
LOC: D.ER 13:42 → D.MS 16:49
PROVIDERS: Family Medicine; ADMIT Internal Medicine Nephrology; ATTEND Internal Medicine Nephrology
DX: N17.9 Acute kidney failure, unspecified (principal); N39.0 Urinary tract infection, site not specified; I10 Essential (primary) hypertension; D50.9 Iron deficiency anemia, unspecified; E78.5 Hyperlipidemia, unspecified; F41.8 Other specified anxiety disorders; B96.20 Unspecified Escherichia coli [E. coli] as the cause of diseases classified elsewhere; I25.10 Atherosclerotic heart disease of native coronary artery without angina pectoris; Z87.440 Personal history of urinary (tract) infections

== ENCOUNTER 2019-10-23 09:52 | Inpatient (IN) | payer MEDICARE ==
[~2019-10-23] VITALS: Ht 165.1 cm; Wt 80.6 kg
[~2019-10-23 09:52] MED LIST changes: +CARDURA8 MG PO; +LEVOFLOXACIN500 MG PO
[2019-10-23 10:37] LABS: BASOPHILS 0.2 % (0-2); EOSINOPHILS 0.1 % (0-7); HEMATOCRIT 31.1 % (36.0-48.0); IMMATURE GRANULOCYTES 0.3 % (0-5); LYMPHOCYTES 1.8 % (15-50); MCH 29.9 pg (26.0-34.0); MCHC 32.2 g/dL (31.0-37.0); MCV 92.8 fL (80.0-100.0); MEAN PLATELET VOLUME 9.2 fL (7.4-10.4); MONOCYTES 4.1 % (2-11); NEUTROPHILS 93.5 % (40-80); PLATELET COUNT 314 10x3/uL (130-400); RBC 3.35 10x6/uL (4.00-5.40); RDW 12.4 % (11.5-14.5); WBC 11.7 10x3/uL (4.8-10.8)
[2019-10-23 10:40] LABS: APPEARANCE CLEAR (CLEAR); BILIRUBIN NEGATIVE (NEGATIVE); COLOR YELLOW (YELLOW); GLUCOSE NEGATIVE (NEGATIVE); KETONE NEGATIVE (NEGATIVE); NITRITE NEGATIVE (NEGATIVE); PROTEIN NEGATIVE (NEGATIVE); UROBILINOGEN NORMAL (NORMAL)
[2019-10-23 10:42] LABS: CALC OSMOLALITY 284 mosm/kg (275-300); CALCIUM 8.6 mg/dL (8.5-10.1); CARBON DIOXIDE 20.1 mmol/L (21.0-32.0); CHLORIDE - SERUM 110 mmol/L (98-107); CREATININE - SERUM 1.4 mg/dL (0.6-1.3); GLUCOSE 114 mg/dL (74-106); POTASSIUM - SERUM 4.1 mmol/L (3.5-5.1); SODIUM 141 mmol/L (136-145); UREA NITROGEN 21 mg/dL (7-18); eGFR NON AFRICAN AMERICAN 38 mL/min (90-120)
[2019-10-23 10:57] LABS: ALBUMIN 2.4 g/dL (3.4-5.0); ALKALINE PHOSPHATASE 77 U/L (46-116); ALT (SGPT) 62 U/L (10-68); AMYLASE - SERUM 74 U/L (25-115); CKMB 0.3 U/L (0.0-3.6); CREATINE KINASE 25 UL (21-215); LIPASE 120 U/L (73-393); PROTEIN - SERUM 6.8 g/dL (6.4-8.2); TROPONIN-I < 0.017 ng/mL (0.000-0.060)
--- NOTE | 2019-10-23 11:28 | NUR ---
PT VOMITED; EDP NOTIFIED; FAMILY AT BEDSIDE
--- NOTE | 2019-10-23 11:42 | NUR ---
PT HAD RUNNY GREENISH STOOL IN HER BRIEF; CLEANED AND PLACED ON A BEDPAIN TO COLLECT STOOL SAMPLE;
--- NOTE | 2019-10-23 12:39 | NUR ---
PT HAD TWO EPISODES OF LIQUID GREENISH STOOL. SAMPLE COLLECTED AND WALKED TO LAB
--- NOTE | 2019-10-23 13:36 | NUR ---
PT HAD ANOTHER EPISODE OF WATER/LOOSE STOOL; LINENS CHANGED PT CLEANED, AND DRY BRIEF PROVIDED; NAUSEA IMPROVED WITH ZOFRAN
[2019-10-23 13:37] VITALS: BP 080/65
--- NOTE | 2019-10-23 14:57 | NUR ---
TRANSFER FROM ER BY STRETCHER. OREINTED TO ROOM. CALL LIGHT IN REACH. WILL CONT. PLAN OF CARE.
[2019-10-23] MEDS ORDERED: NITROSTAT0.4 MG SL (15:43)
[2019-10-23] MEDS ORDERED: IRON 65MG TAB PO (15:45)
[2019-10-23] MEDS ORDERED: FERROUS SULFAT325 MG PO (15:45)
[2019-10-23] MEDS ORDERED: ATIVAN0.5 MG PO (15:47)
[2019-10-23] MEDS ORDERED: ACETAMINOPHEN500 M1 PO (15:47)
[2019-10-23] MEDS ORDERED: FLUTICASONE PRO16 GM NASAL (15:48)
[2019-10-23] MEDS ORDERED: ALBUTEROL SULF8.5 GM INH (15:49)
[2019-10-23 16:23] VITALS: BP 144/49; BMI 27.5
--- NOTE | 2019-10-23 16:44 | NUR ---
CALLED WILL THURMAN ABOUT GETTING PT'S HOME MEDS RESTARTED.
[2019-10-23 17:09] VITALS: BP 144/49
--- NOTE | 2019-10-23 17:40 | NUR ---
SCD'S PLACED ON PT.
--- NOTE | 2019-10-23 17:40 | NUR ---
RIGHT WRIST IV INFILTRATED. DC'D WITH CATH INTACT. RIGHT FA 20G IV INSERTED.
--- NOTE | 2019-10-23 19:20 | NUR ---
RECEIVED REPORT,WILL ASSUME CARE OF PT, UP TO RESTROOM, STILL LIQUID GREEN STOOL, ASSISTED PT BACK TO BED, DENIES ANY NEEDS AT THIS TIME, BED IS LOW, SRX2, CALL LIGHT IN REACH, WILL CONTINUE PLAN OF CARE
[2019-10-23 20:00] VITALS: BP 123/59
[2019-10-24] VITALS: BP 164/65
[2019-10-24 04:00] VITALS: BP 158/59
--- NOTE | 2019-10-24 04:28 | NUR ---
I have reviewed this patient and I concur with the Shift Assessment completed by the Licensed Practical Nurse today this shift.
[2019-10-24 05:46] LABS: BASOPHILS 0.2 % (0-2); EOSINOPHILS 1.1 % (0-7); HEMATOCRIT 26.6 % (36.0-48.0); HEMOGLOBIN 8.4 g/dL (12-16); IMMATURE GRANULOCYTES 0.5 % (0-5); LYMPHOCYTES 7.7 % (15-50); MCH 29.6 pg (26.0-34.0); MCHC 31.6 g/dL (31.0-37.0); MCV 93.7 fL (80.0-100.0); MEAN PLATELET VOLUME 9.2 fL (7.4-10.4); MONOCYTES 5.4 % (2-11); NEUTROPHILS 85.1 % (40-80); PLATELET COUNT 329 10x3/uL (130-400); RBC 2.84 10x6/uL (4.00-5.40); RDW 12.6 % (11.5-14.5)
[2019-10-24 06:09] LABS: WBC 6.1 10x3/uL (4.8-10.8)
[2019-10-24 06:20] LABS: ANION GAP 15.1 mmol/L (8-16); BILIRUBIN - TOTAL 0.18 mg/dL (0.2-1.3); CARBON DIOXIDE 19.2 mmol/L (21.0-32.0); CREATININE - SERUM 1.4 mg/dL (0.6-1.3); MAGNESIUM - SERUM 1.6 mg/dL (1.8-2.4); POTASSIUM - SERUM 4.3 mmol/L (3.5-5.1); PROTEIN - SERUM 5.7 g/dL (6.4-8.2)
--- NOTE | 2019-10-24 07:39 | NUR ---
ALERT AND ORIENTED. RIGHT FA IV WITN NS AT 125. UP WITH ASSIST. DENIES ANY NEEDS. SR UP WITH CALL LIGHT IN REACH
[2019-10-24 08:00] VITALS: BP 169/66
[2019-10-24 12:00] VITALS: BP 186/72
[2019-10-24 16:00] VITALS: BP 188/75
[2019-10-24 20:41] VITALS: BP 182/70
[2019-10-25 00:35] VITALS: BP 130/71
--- NOTE | 2019-10-25 01:48 | NUR ---
SPOKE WITH PTS MAXIMO PEÑA, GAVE UP DATE ON PTS CONDITION. PTS MAXIMO ASKING WHEN BEST TIME IS TO SPEAK WITH THE DOCTOR, INFORMED HER THAT I WILL PASS IT ON TO DAY SHIFT NURSE AND THEY CAN LET THE PHYSICIAN KNOW WHEN THEY MAKE ROUNDS.
[2019-10-25 04:00] VITALS: BP 192/69
[2019-10-25 05:43] LABS: BASOPHILS 0 % (0-2); HEMATOCRIT 27.3 % (36.0-48.0); HEMOGLOBIN 8.6 g/dL (12-16); IMMATURE GRANULOCYTES 0.5 % (0-5); LYMPHOCYTES 14.4 % (15-50); MCH 29.4 pg (26.0-34.0); MCHC 31.5 g/dL (31.0-37.0); MCV 93.2 fL (80.0-100.0); MEAN PLATELET VOLUME 9.2 fL (7.4-10.4); MONOCYTES 7.2 % (2-11); NEUTROPHILS 75.9 % (40-80); PLATELET COUNT 315 10x3/uL (130-400); RBC 2.93 10x6/uL (4.00-5.40); RDW 12.5 % (11.5-14.5)
[2019-10-25 06:11] LABS: ALBUMIN 2.1 g/dL (3.4-5.0); ANION GAP 13.5 mmol/L (8-16); BILIRUBIN - TOTAL 0.17 mg/dL (0.2-1.3); CALCIUM 8.4 mg/dL (8.5-10.1); CARBON DIOXIDE 19.4 mmol/L (21.0-32.0); CREATININE - SERUM 1.2 mg/dL (0.6-1.3); MAGNESIUM - SERUM 1.7 mg/dL (1.8-2.4); POTASSIUM - SERUM 3.9 mmol/L (3.5-5.1); PROTEIN - SERUM 5.8 g/dL (6.4-8.2)
--- NOTE | 2019-10-25 07:32 | NUR ---
ALERT AND ORIENTED.UP AB SARKIS. RIGHT FA IV WITH ZOFRAN AT 4.7. NO NEEDS VOICED. WILL MONITOR
[2019-10-25 10:33] VITALS: BP 187/70
--- NOTE | 2019-10-25 11:24 | NUR ---
I have reviewed this patient and I concur with the Shift Assessment completed by the Licensed Practical Nurse today this shift.
[2019-10-25 13:46] VITALS: Ht 165.1 cm; Wt 80.6 kg
[2019-10-25 15:12] VITALS: BP 181/68
--- NOTE | 2019-10-25 17:45 | NUR ---
OT NOTE: PT REQUIRED SPV-I WITH BED MOB TASKS. PT REQUIRED COMPLETED UB HYGIENE TASKS WITH SPV. PT COMPLETED UE AROM EXS. PT IS SOB AND REQUIRED REST BREAKS. 1-023 THANK YOU, SPRING BABB
[2019-10-25] MEDS ORDERED: LEVAQUIN750 MG PO (18:04)
[2019-10-25] MEDS ORDERED: FLAGYL500 MG PO (18:05)
--- NOTE | 2019-10-25 19:16 | NUR ---
SPOKE WITH LYNDA SHEEHAN APN, EXPLAINED THAT PT HAS A DC ORDER, PT IS 84 YEARS OLD, DOES NOT HAVE A RIDE AND HAS JUST DIZZY EPISODE. ORDERS TO CANCEL DISCHARGE ORDER AND KEEP PT OVER NIGHT.
[2019-10-25 20:00] VITALS: BP 138/60
[2019-10-26] VITALS: BP 194/80
--- NOTE | 2019-10-26 02:38 | NUR ---
I have reviewed this patient and I concur with the Shift Assessment completed by the Licensed Practical Nurse today this shift.
[2019-10-26 05:03] VITALS: BP 191/79
[2019-10-26 07:36] LABS: BASOPHILS 0.2 % (0-2); EOSINOPHILS 1.2 % (0-7); HEMATOCRIT 27.8 % (36.0-48.0); HEMOGLOBIN 8.9 g/dL (12-16); IMMATURE GRANULOCYTES 0.2 % (0-5); LYMPHOCYTES 11.9 % (15-50); MCH 29.6 pg (26.0-34.0); MCV 92.4 fL (80.0-100.0); MEAN PLATELET VOLUME 9.1 fL (7.4-10.4); MONOCYTES 7.6 % (2-11); NEUTROPHILS 78.9 % (40-80); PLATELET COUNT 305 10x3/uL (130-400); RBC 3.01 10x6/uL (4.00-5.40); RDW 12.5 % (11.5-14.5)
[2019-10-26 07:37] LABS: WBC 5.6 10x3/uL (4.8-10.8)
--- NOTE | 2019-10-26 07:39 | NUR ---
REPORT RECEIVED. WILL CONTINUE WITH POC. PT CURRENTLY LYING SEMI FOWLERS. CALL LIGHT W/I REACH. PT IS ASLEEP WITH EYES CLOSED AT THIS TIME. RR EVEN AND UNLABORED ON RA. R.FOR PIV IS SALINE LOCKED. NO S/S OF DISTRESS NOTED. WILL CTM.
[2019-10-26 08:00] VITALS: BP 174/69
[2019-10-26 08:03] LABS: ALBUMIN 2.2 g/dL (3.4-5.0); ANION GAP 12.2 mmol/L (8-16); BILIRUBIN - TOTAL 0.22 mg/dL (0.2-1.3); CALCIUM 8.4 mg/dL (8.5-10.1); CARBON DIOXIDE 23.9 mmol/L (21.0-32.0); CREATININE - SERUM 1.3 mg/dL (0.6-1.3); MAGNESIUM - SERUM 1.4 mg/dL (1.8-2.4); POTASSIUM - SERUM 4.1 mmol/L (3.5-5.1); PROTEIN - SERUM 5.8 g/dL (6.4-8.2)
--- NOTE | 2019-10-26 09:41 | NUR ---
Rehab Note- Acute Inpatient Rehab prescreen order received. The patient has [employer] insurance and would require a PreAuth prior to an acute inpatient rehab stay. The patient has her PT Zen and stating no skilled therap needs at this time, OT Zen recommends home with home health. THe patient is too high level for inpatient acute rehab at this time. Thank you for this referral! Nancy Garcia RN CLinical Liaison, [facility] Rehab
[2019-10-26 12:23] VITALS: BP 184/67
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
--- NOTE | 2019-10-26 15:17 | NUR ---
PT DISCHARGED HOME VIA WHEELCHAIR WITH FAMILY. PIV REMOVED WITH CATHETER TIP FULLY INTACT. PT SIGNED PROPER DISCHARGE INSTRUCTION AND REMOVED ALL VALUABLES FROM THE ROOM.
--- NOTE | 2019-10-26 17:05 | MORECARE ---
CASE MANAGEMENT DISCHARGE SUMMARY PATIENT: EMILIA CALDERÓN UNIT: [id number] ADM DATE: 10/23/19 AGE: 84 : 33 SEX: F ROOM/BED: D.0544 AUTHOR: BHUPENDRADOC PHYSICIAN: REFERRING PHYSICIAN: HILARIA BO MD DATE OF SERVICE: 10/26/19 Discharge Plan Patient Name: EMILIA CALDERÓN Facility: [facility]:[place] : 1935 Planned Disposition: Home Anticipated Discharge Date: 10/26/19 Discharge Date: 10/26/2019 Expected LOS: 3 Initial Reviewer: [id number] Initial Review Date: 10/26/2019 Generated: 10/26/19 6:05 pm Comments DCP- Discharge Planning Updated by [id number]: Corey English on 10/26/19 4:[address] Patient Name: EMILIA CALDERÓN Admission Status: ER Accout number: [id number] Admission Date: 10-23-2019 : 1935 Admission Diagnosis: Attending: HILARIA BO Current LOS: 3 Anticipated DC Date: 10-26-2019 Planned Disposition: Home Primary Insurance: [employer] MEDICARE PPO or HMO Discharge Planning Comments: CM MET WITH PT IN ROOM TO DISCUSS DISCHARGE PLANNING AND NEEDS. PT REPORTS LIVING AT HOME INDEPENDENTLY AND ALONE. PT HAS NO MEDICAL EQUIPMENT AND NO OUTSIDE SERVICES ASSISTING IN THE HOME. CM DISCUSSED AVAILABILITY OF HOME HEALTH, REHAB SERVICES AND MEDICAL EQUIPMENT. PT DENIES DISCHARGE NEEDS, REPORTS HER SISTER WILL PICK HER UP FOR DISCHARGE HOME. IMPORTANT MESSAGE FROM MEDICARE PROVIDED AND EXPLAINED. CHOICE FOR NO HOME HEALTH COMPLETED. MULLING MACHINE OPERATOR NURSE NOTIFIED. Education Dean: Corey English DCPIA - Discharge Planning Initial Assessment Updated by [id number]: Corey English on 10/26/19 5:03 pm * Is the patient Alert and Oriented? Yes * How many steps to enter\exit or inside your home? NONE * PCP NONE * [facility] * Preadmission Environment Home Alone * ADLs Independent * Equipment None * Other Equipment NO MEDICAL EQUIPMENT PROVIDER PREFERENCE * List name and contact numbers for known caregivers / representatives who currently or will assist patient after discharge: SB FRANKS, SISTER, * Verbal permission to speak to the caregivers and representatives has been obtained from the patient. N/A * Community resources currently utilized None * Please name any agencies selected above. NONE * Additional services required to return to the preadmission environment? No * Can the patient safely return to the preadmission environment? Yes * Has this patient been hospitalized within the prior 30 days at any hospital? Yes Coverage Notice Reviewer: [id number] Lilly Nicole Tameka Notice Issued Date-Time: 10/26/2019 12:10 Notice Type: IM Discharge Notice Notice Delivered To: Patient Relationship to Patient: Proposal Manager Writer Name: Delivery Method: HAND - Hand Delivered Lisbeth Days: Prior Verbal Notification: Recipient Understood Notice: Yes Recipient Signature: Yes Med Rec Note Co-signed by Attending: Coverage Notice Comment: Patient Name: EMILIA CALDERÓN Page [phone] at 1705 All edits/amendments must be made on the electronic document DICTATION DATE: 10/26/191704 TIN TIE MACHINE OPERATOR AUTOMATIC: NA 10/26/19 170 RPT#: [id number] DC DATE:10/26/19 STATUS: DIS IN [facility] [address] [place] [address] END OF REPORT
--- NOTE | 2019-10-27 09:24 | MORECARE ---
CASE MANAGEMENT DISCHARGE SUMMARY PATIENT: EMILIA CALDERÓN UNIT: [id number] ADM DATE: 10/23/19 AGE: 84 : 34 SEX: F ROOM/BED: D.9787 AUTHOR: BHUPENDRADOC PHYSICIAN: REFERRING PHYSICIAN: HILARIA BO MD DATE OF SERVICE: 10/27/19 Discharge Plan Patient Name: EMILIA CALDERÓN Facility: [facility]:[place] : 1935 Planned Disposition: Home Anticipated Discharge Date: 10/26/19 Discharge Date: 10/26/2019 Expected LOS: 3 Initial Reviewer: [id number] Initial Review Date: 10/26/2019 Generated: 10/27/19 10:23 am Comments DCP- Discharge Planning Updated by [email or web address]: Corey English on 10/26/19 4:[address] Patient Name: EMILIA CALDERÓN Admission Status: ER Accout number: [id number] Admission Date: 10-23-2019 : 1935 Admission Diagnosis: Attending: HILARIA BO Current LOS: 3 Anticipated DC Date: 10-26-2019 Planned Disposition: Home Primary Insurance: [employer] MEDICARE PPO or HMO Discharge Planning Comments: CM MET WITH PT IN ROOM TO DISCUSS DISCHARGE PLANNING AND NEEDS. PT REPORTS LIVING AT HOME INDEPENDENTLY AND ALONE. PT HAS NO MEDICAL EQUIPMENT AND NO OUTSIDE SERVICES ASSISTING IN THE HOME. CM DISCUSSED AVAILABILITY OF HOME HEALTH, REHAB SERVICES AND MEDICAL EQUIPMENT. PT DENIES DISCHARGE NEEDS, REPORTS HER SISTER WILL PICK HER UP FOR DISCHARGE HOME. IMPORTANT MESSAGE FROM MEDICARE PROVIDED AND EXPLAINED. CHOICE FOR NO HOME HEALTH COMPLETED. NUCLEAR EQUIPMENT SALES ENGINEER NURSE NOTIFIED. Lab Engineer: Corey English DCPIA - Discharge Planning Initial Assessment Updated by [id number]: Corey English on 10/26/19 5:03 pm * Is the patient Alert and Oriented? Yes * How many steps to enter\exit or inside your home? NONE * PCP NONE * [facility] * Preadmission Environment Home Alone * ADLs Independent * Equipment None * Other Equipment NO MEDICAL EQUIPMENT PROVIDER PREFERENCE * List name and contact numbers for known caregivers / representatives who currently or will assist patient after discharge: SB FRANKS, SISTER, * Verbal permission to speak to the caregivers and representatives has been obtained from the patient. N/A * Community resources currently utilized None * Please name any agencies selected above. NONE * Additional services required to return to the preadmission environment? No * Can the patient safely return to the preadmission environment? Yes * Has this patient been hospitalized within the prior 30 days at any hospital? Yes Coverage Notice Reviewer: [id number] Lilly English Notice Issued Date-Time: 10/26/2019 12:10 Notice Type: IM Discharge Notice Notice Delivered To: Patient Relationship to Patient: Headwaiter/Headwaitress Name: Delivery Method: HAND - Hand Delivered Lisbeth Days: Prior Verbal Notification: Recipient Understood Notice: Yes Recipient Signature: Yes Med Rec Note Co-signed by Attending: Coverage Notice Comment: Reviewer: [id number] Lilly English Notice Issued Date-Time: 10/26/2019 14:47 Notice Type: Patient Choice Letter Notice Delivered To: Patient Relationship to Patient: Headwaiter/Headwaitress Name: Delivery Method: HAND - Hand Delivered Lisbeth Days: Prior Verbal Notification: Recipient Understood Notice: Yes Recipient Signature: Yes Med Rec Note Co-signed by Attending: Coverage Notice Comment: REFUSED HOME HEALTH Last DP export: 10/26/19 4:05 pm Patient Name: EMILIA CALDERÓN Page [phone] at 0924 All edits/amendments must be made on the electronic document DICTATION DATE: 10/27/19922 INSTRUMENT AND ELECTRICAL TECHNICIAN: NA 10/27/19922 RPT#: [id number] DC DATE:10/26/19 STATUS: DIS IN [facility] [id number] [place] [address] END OF REPORT
== END 2019-10-26 15:18 | disposition home or self-care (01) | DRG 392 ==
LOC: D.ER 09:52 → D.M2 14:30
PROVIDERS: Emergency Medicine; Family Medicine; ADMIT Family Medicine; ATTEND Family Medicine
DX: K52.9 Noninfective gastroenteritis and colitis, unspecified (principal); N17.9 Acute kidney failure, unspecified; I10 Essential (primary) hypertension; E78.5 Hyperlipidemia, unspecified; I25.10 Atherosclerotic heart disease of native coronary artery without angina pectoris; F41.8 Other specified anxiety disorders

== ENCOUNTER → 2019-11-04 10:07 | Outpatient (CLI) | payer MEDICARE ==
[2019-10-25 13:46] VITALS: BMI 29.6
[~2019-11-04 10:07] MED LIST changes: +ALBUTEROL SULF8.5 GM INH; +ATIVAN0.5 MG PO; +FERROUS SULFAT325 MG PO; +FLAGYL500 MG PO; +FLUTICASONE PRO16 GM NASAL; +IRON 65MG TAB PO; +LEVAQUIN750 MG PO; +NITROSTAT0.4 MG SL
[2019-11-04 10:54] LABS: BASOPHILS 0.3 % (0-2); HEMATOCRIT 31.9 % (36.0-48.0); HEMOGLOBIN 10.1 g/dL (12-16); LYMPHOCYTES 19.3 % (15-50); MCH 28.9 pg (26.0-34.0); MCHC 31.7 g/dL (31.0-37.0); MCV 91.1 fL (80.0-100.0); MEAN PLATELET VOLUME 9.9 fL (7.4-10.4); MONOCYTES 11.3 % (2-11); NEUTROPHILS 67.1 % (40-80); PLATELET COUNT 303 10x3/uL (130-400); RDW 12.4 % (11.5-14.5)
[2019-11-04 11:10] LABS: BILIRUBIN - TOTAL 0.45 mg/dL (0.2-1.3); CARBON DIOXIDE 31.8 mmol/L (21.0-32.0); CHOL - HDL RATIO 4.4 ratio (2.3-4.1); CREATININE - SERUM 1.1 mg/dL (0.6-1.3); LDL-HDL RATIO 2.7 ratio (1.5-3.5); POTASSIUM - SERUM 3.8 mmol/L (3.5-5.1); PROTEIN - SERUM 7.3 g/dL (6.4-8.2); THYROID STIMULATING HORMONE 3.11 uIU/mL (0.36-3.74)
== END | disposition home or self-care (01) ==
LOC: D.LAB 10:07
PROVIDERS: ATTEND Family Medicine
DX: I25.10 Atherosclerotic heart disease of native coronary artery without angina pectoris (principal); D64.9 Anemia, unspecified; R09.89 Other specified symptoms and signs involving the circulatory and respiratory systems; N18.9 Chronic kidney disease, unspecified

== ENCOUNTER 2019-12-19 10:02 | Emergency (ER) | payer MEDICARE ==
[~2019-12-19] VITALS: Ht 165.1 cm; Wt 70.5 kg
[~2019-12-19 10:02] MED LIST changes: +NORVASC5 MG PO; +PREDNISONE20 MG PO; +TOPROL XL50 MG PO
[2019-12-19 10:09] VITALS: BP 195/90; Ht 165.1 cm; Wt 70.5 kg
[2019-12-19 11:11] LABS: ANION GAP 11.3 mmol/L (8-16); CALCIUM 9.2 mg/dL (8.5-10.1); CARBON DIOXIDE 25.9 mmol/L (21.0-32.0); CREATININE - SERUM 1.1 mg/dL (0.6-1.3); POTASSIUM - SERUM 4.2 mmol/L (3.5-5.1)
[2019-12-19 11:12] LABS: BASOPHILS 0.3 % (0-2); EOSINOPHILS 1.7 % (0-7); HEMATOCRIT 32.6 % (36.0-48.0); IMMATURE GRANULOCYTES 0.3 % (0-5); LYMPHOCYTES 17.1 % (15-50); MCH 30.3 pg (26.0-34.0); MCHC 33.7 g/dL (31.0-37.0); MCV 89.8 fL (80.0-100.0); MEAN PLATELET VOLUME 9.2 fL (7.4-10.4); MONOCYTES 7.2 % (2-11); NEUTROPHILS 73.4 % (40-80); PLATELET COUNT 283 10x3/uL (130-400); RBC 3.63 10x6/uL (4.00-5.40); RDW 14.1 % (11.5-14.5); WBC 5.7 10x3/uL (4.8-10.8)
[2019-12-19 11:17] LABS: ALBUMIN 3.9 g/dL (3.4-5.0); BILIRUBIN - TOTAL 0.52 mg/dL (0.2-1.3); MAGNESIUM - SERUM 2.1 mg/dL (1.8-2.4)
[2019-12-19 11:30] LABS: APTT 23.8 SECONDS (22.8-39.4); INR 0.96 (0.85-1.17); PROTIME 12.8 SECONDS (11.6-15.0)
[2019-12-19 11:31] LABS: CKMB 0.7 U/L (0.0-3.6); CREATINE KINASE 51 UL (21-215); TROPONIN-I < 0.017 ng/mL (0.000-0.060)
[2019-12-19] MEDS ORDERED: FER-IN-SOL DROP50 ML (13:59)
== END 2019-12-19 14:09 | disposition home or self-care (01) ==
LOC: D.ER 10:02
PROVIDERS: Family Medicine
DX: M79.602 Pain in left arm (principal); M54.12 Radiculopathy, cervical region; K92.2 Gastrointestinal hemorrhage, unspecified; K64.9 Unspecified hemorrhoids; I10 Essential (primary) hypertension; Z95.5 Presence of coronary angioplasty implant and graft; I25.119 Atherosclerotic heart disease of native coronary artery with unspecified angina pectoris; K21.9 Gastro-esophageal reflux disease without esophagitis